=== PATIENT | female | born 1990 | race Caucasian/White ===

== ENCOUNTER 2019-01-07 04:59 | Emergency (ER) | payer OTHER ==
[~2019-01-07] VITALS: Wt 93.2 kg
[2019-01-07 05:00] VITALS: BP 126/63; PULSE 95; RESP 18
--- NOTE | 2019-01-07 05:42 | ERD ---
ER Documentation Chief Complaint Chief Complaint DYSURIA, URINARY FREQUENCY X'S 2 DAYS HPI 28-year-old female presents with complaint of dysuria, yellow vaginal discharge, and urinary frequency for the past 3 days. Patient states that she is sexually active but only with one partner. Does not have other partners having any symptoms. Denies fevers, chills, hematuria, vomiting, diarrhea, abdominal pain. ROS All systems reviewed and are negative except as per history of present illness. Medications Home Meds Active Scripts Metronidazole* (Flagyl*) 500 Mg Tablet, 500 MG PO BID for 7 Days, TAB Prov:NOAM REYES PA-C 01/07/19 Cephalexin* (Keflex*) 500 Mg Capsule, 500 MG PO BID for UTI for 7 Days, CAP Prov:TALYA PELAEZ 01/07/19 Allergies Allergies: Coded Allergies: No Known Drug Allergies (Verified Allergy, Unknown, 02/12/14) PMhx/Soc Medical and Surgical Hx: pt denies Surgical Hx History of Surgery: No Anesthesia Reaction: No Hx Neurological Disorder: No Hx Respiratory Disorders: Yes (Hx Asthma) Hx Cardiac Disorders: No Hx Psychiatric Problems: No Hx Miscellaneous Medical Probl: Yes (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 Neck: Full range of motion. No meningismus. Resp: Clear to auscultation bilaterally Cardio: Regular rate and rhythm, no murmurs Abd: Soft, non tender, non distended. Normal bowel sounds Skin: No petechiae or rashes Back: No midline or flank tenderness Ext: No cyanosis, or edema Neur: Awake and alert Psych: Normal Mood and Affect Results 24 hrs Laboratory Tests Test 01/07/19 05:36 01/07/19 05:40 Urine Color YELLOW Urine Clarity CLOUDY Urine pH 6.0 Urine Specific [place] 1.027 Urine Ketones NEGATIVE mg/dL Urine Nitrite NEGATIVE mg/dL Urine Bilirubin NEGATIVE mg/dL Urine Urobilinogen 1+ mg/dL Urine Leukocyte Esterase 3+ Juan José/ul Urine Microscopic RBC 12 /HPF Urine Microscopic WBC > 182 /HPF Urine Squamous Epithelial Cells MANY /HPF Urine Bacteria FEW /HPF Urine Mucus FEW /HPF Urine Hemoglobin NEGATIVE mg/dL Urine Glucose NEGATIVE mg/dL Urine Total Protein NEGATIVE mg/dl Chlamydia trachomatis RNA (TMA) NOT DETECTED Chlamydia/GC Comment SEE NOTE Neisseria gonorrhoeae RNA (TMA) NOT DETECTED POC Beta HCG, Qualitative NEGATIVE Current Medications Medications Dose Sig/Soheila Start Time Status Last (Trade) Ordered Route PRN Stop Time Admin Dose Reason Admin Ceftriaxone 250 mg ONCE ONCE 01/07/19 DC 01/07/19 Sodium IM 06:30 01/07/19 06:38 (Rocephin) 06:31 Lidocaine 5 ml ONCE ONCE 01/07/19 DC 01/07/19 (Xylocaine INJ 06:30 01/07/19 06:38 1% (Mpf)) 06:31 1,000 mg ONCE ONCE 01/07/19 DC 01/07/19 Azithromycin PO 06:30 01/07/19 06:37 (Zithromax) 06:31 Procedures/MDM MDM: UA shows positive UTI so patient will based on Keflex. I am currently waiting on results of the fungal wet mount. Patient has been signed out to Noam pending results of wet mount. This point I have low suspicion for PID, ovarian torsion, tubo-ovarian abscess, ectopic , or any other emergent condition. Noam will do the discharge. Departure Diagnosis: Primary Impression: Dysuria Additional Impressions: UTI (urinary tract infection) Urinary tract infection type: acute cystitis Hematuria presence: without hematuria Qualified Codes: N30.00 - Acute cystitis without hematuria infection, trichomonal BV (bacterial vaginosis) TALYA PELAEZ January 07, 2019 05:42
[2019-01-07] MEDS ORDERED: CEPH-443 PO (06:13)
[2019-01-07] MEDS ORDERED: AZITHROMYCIN 500 MG TAB PO ONE (06:30)
[2019-01-07] MEDS ORDERED: LIDOCAINE 1% (MPF) 5 ML VIAL INJ ONE (06:30)
[2019-01-07] MEDS ORDERED: CEFTRIAXONE 250 MG INJ IM ONE (06:30)
[2019-01-07] MEDS ORDERED: METR500T PO (07:03)
== END 2019-01-07 07:08 | disposition home or self-care (01) ==
LOC: FTE 04:59
DX: N30.00 Acute cystitis without hematuria (principal); A59.00 Urogenital trichomoniasis, unspecified; N76.0 Acute vaginitis; J45.909 Unspecified asthma, uncomplicated; F17.210 Nicotine dependence, cigarettes, uncomplicated
CPT/HCPCS: 81001; 81025; 87210; 87591; 96372; J0696; Z7502; Z7610